=== PATIENT | female | born 1950 | race American Indian/Alaskan Native ===

== ENCOUNTER 2017-06-15 20:30 | Emergency (ER) | payer MEDICARE, OTHER ==
--- NOTE | 2017-06-15 21:02 | EDM.PDOC ---
ED HPI GENERAL MEDICAL PROBLEM - General Chief Complaint: Lower Extremity Injury/Pain Stated Complaint: CAME BY AMB,NEW PATIENT,NEURO SYMPTOMS Time Seen by Provider: 06/15/17 20:45 Source of Information: Reports: Patient History Limitations: Reports: No Limitations - History of Present Illness INITIAL COMMENTS - FREE TEXT/NARRATIVE: ED via [facility] with c/o low back pain with increased pain on left buttock and difficulty walking related to pain. [place] with onset of increasing pain. Patient states she has chronic back pain but tonight pain did not relieve with Tramadol so contacted EMS. Patient states has been travelling recently and spending more time sitting than usual and not moving around. Left Lower Back Pain Score (Numeric/FACES): 8 - Related Data Allergies Allergy/AdvReac Type Severity Reaction Status Date / Time hydrocodone Allergy Hives Verified 06/15/17 21:45 oxycodone Allergy Hives Verified 06/15/17 21:45 strawberry Allergy Hives Verified 06/15/17 21:45 Home Meds: Home Meds Atenolol 25 mg PO DAILY 06/15/17 [History] Calcium Carbonate [Calcium] 500 mg PO DAILY 06/15/17 [History] Fish Oil/[place]-3 Fatty Acids [Fish Oil] 500 mg PO DAILY 06/15/17 [History] Hydrochlorothiazide 25 mg PO DAILY 06/15/17 [History] Omeprazole 10 mg PO DAILY 06/15/17 [History] Simvastatin [Zocor] 10 mg PO DAILY 06/15/17 [History] Past Medical History Cardiovascular History: Reports: High Cholesterol, Hypertension Gastrointestinal History: Reports: GERD, Hemorrhoids - Past Surgical History GI Surgical History: Reports: Colonoscopy Social & Family History - Tobacco Use Smoking Status *Q: Current Every Day Smoker Years of Tobacco use: 40 Packs/Tins Daily: 3 - Caffeine Use Caffeine Use: Reports: Coffee - Recreational Drug Use Recreational Drug Use: No Review of Systems - Review of Systems Review Of Systems: ROS reveals no pertinent complaints other than HPI. ED EXAM, GENERAL - Physical Exam Exam: See Below Exam Limited By: No Limitations General Appearance: Alert, No Apparent Distress, Moderate Distress Eye Exam: Bilateral Eye: Conjunctival Injection Nose: Normal Inspection Throat/Mouth: Normal Inspection Head: Atraumatic, Normocephalic Neck: Normal Inspection Respiratory/Chest: No Respiratory Distress Course - Vital Signs Last Recorded V/S: Last Vital Signs Temp 96.5 F 06/15/17 20:44 Pulse 68 06/15/17 20:44 Resp 18 06/15/17 20:44 BP 145/57 H 06/15/17 20:44 Pulse Ox 96 06/15/17 20:44 - Orders/Labs/Meds Meds: Medications Discontinued Medications Generic Name Dose Route Start Last Admin Trade Name Rolandq PRN Reason Stop Dose Admin Cyclobenzaprine HCl 5 mg 06/15/17 22:43 06/15/17 22:48 Flexeril PO 06/15/17 22:44 5 mg ONETIME ONE Administration Ketorolac Tromethamine 30 mg 06/15/17 22:42 06/15/17 22:47 Toradol IM 06/15/17 22:43 30 mg ONETIME ONE Administration - Radiology Interpretation Free Text/Narrative:: CT unremarkable for acute process, arthritic changes present Departure - Departure Time of Disposition: 23:11 Disposition: Home, Self-Care 01 Condition: Good Clinical Impression: Sciatic leg pain - Discharge Information Instructions: Sciatica Forms: ED Department Discharge Additional Instructions: follow bup with primary care ice to low back tramadol as ordered by primary provider rest , change positions more frequently
[2017-06-15] MEDS: Ketorolac 30 MG/ML SDV IM ONE (22:47)
[2017-06-15] MEDS: Cyclobenzaprine 10 MG Tab PO ONE (22:48)
== END 2017-06-15 23:15 | disposition home or self-care (01) ==
LOC: DL.ED 20:30
DX: M54.42 Lumbago with sciatica, left side (principal); F17.210 Nicotine dependence, cigarettes, uncomplicated; I10 Essential (primary) hypertension; E78.00 Pure hypercholesterolemia, unspecified; Z79.899 Other long term (current) drug therapy; Z88.5 Allergy status to narcotic agent; Z91.018 Allergy to other foods
CPT/HCPCS: 72131; 96372; 99284; A9270; J1885

== ENCOUNTER 2019-04-28 11:44 | Emergency (ER) | payer MEDICARE, OTHER ==
[2019-04-28] MEDS ORDERED: Ketorolac 30 MG/ML SDV IM ONE (13:12)
[2019-04-28] MEDS ORDERED: Cyclobenzaprine 10 MG Tab PO ONE (13:13)
--- NOTE | 2019-04-28 18:52 | EDM.PDOC ---
Scribed by Daysi Zamora 04/28/19 1916 for Dat Patrick NP ED HPI GENERAL MEDICAL PROBLEM - General Chief Complaint: Back Pain or Injury Stated Complaint: BACK PAIN Time Seen by Provider: 04/28/19 13:00 Source of Information: Reports: Patient, RN, RN Notes Reviewed History Limitations: Reports: No Limitations - History of Present Illness INITIAL COMMENTS - FREE TEXT/NARRATIVE: Patient is a 68-year-old female who presents to ED with complaint of lower back pain x1 day. She reports a history fo sciatica in her lower back. She states that she usually sees a chiropractor. She has been travelling a little bit lately and today when she got up she started having pain. She tried Tylenol with no relief. She denies any known triggers, fall, or injury. Pain is an 8/10 and it is sharp in her lower back extending into her left leg. Onset: Gradual Duration: Getting Worse Location: Reports: Back Quality: Reports: Sharp Severity: Moderate Improves with: Reports: None Worsens with: Reports: None Associated Symptoms: Reports: No Other Symptoms Back Pain Score (Numeric/FACES): 9 - Related Data Allergies Allergy/AdvReac Type Severity Reaction Status Date / Time hydrocodone Allergy Hives Verified 04/28/19 12:25 oxycodone Allergy Hives Verified 04/28/19 12:25 strawberry Allergy Hives Verified 04/28/19 12:25 Home Meds: Home Meds Calcium Carbonate [Calcium] 500 mg PO DAILY 06/15/17 [History] Omeprazole 10 mg PO DAILY 06/15/17 [History] Simvastatin [Zocor] 10 mg PO DAILY 06/15/17 [History] atenoloL [Atenolol] 25 mg PO DAILY 06/15/17 [History] hydroCHLOROthiazide [Hydrochlorothiazide] 25 mg PO DAILY 06/15/17 [History] Aspirin 81 mg PO DAILY 04/28/19 [History] Past Medical History HEENT History: Reports: Impaired Vision Cardiovascular History: Reports: High Cholesterol, Hypertension Respiratory History: Reports: None Gastrointestinal History: Reports: GERD, Hemorrhoids Genitourinary History: Reports: None [employer]IVER History: Reports: , Other (See Below) Other [employer] TR[employer]IVER History: hysterectomy Musculoskeletal History: Reports: Back Pain, Chronic Neurological History: Reports: None Psychiatric History: Reports: None Hematologic History: Reports: None Immunologic History: Reports: None Oncologic (Cancer) History: Reports: None Dermatologic History: Reports: None - Infectious Disease History Infectious Disease History: Reports: None - Past Surgical History Head Surgeries/Procedures: Reports: None GI Surgical History: Reports: Colonoscopy Endocrine Surgical History: Reports: Thyroidectomy Social & Family History - Family History Family Medical History: Noncontributory - Tobacco Use Smoking Status *Q: Current Every Day Smoker Years of Tobacco use: 30 Packs/Tins Daily: 0.4 - Caffeine Use Caffeine Use: Reports: Coffee - Recreational Drug Use Recreational Drug Use: No ED ROS GENERAL - Review of Systems Review Of Systems: Comprehensive ROS is negative, except as noted in HPI. ED EXAM,LOWER BACK PAIN/INJURY - Physical Exam Exam: See Below Exam Limited By: No Limitations General Appearance: Alert, WD/WN, No Apparent Distress Respiratory/Chest: No Respiratory Distress, Lungs Clear, Normal Breath Sounds, No Accessory Muscle Use, Chest Non-Tender Cardiovascular: Normal Peripheral Pulses, Regular Rate, Rhythm, No Edema, No Gallop, No JVD, No Murmur, No Rub Back Exam: Other (Patient has low back pain on palpation. ) Course - Vital Signs Last Recorded V/S: Last Vital Signs Temp 98.0 F 04/28/19 12:15 Pulse 64 04/28/19 12:15 Resp 18 04/28/19 12:15 BP 168/80 H 04/28/19 12:15 Pulse Ox 94 L 04/28/19 12:15 - Orders/Labs/Meds Meds: Medications Discontinued Medications Generic Name Dose Route Start Last Admin Trade Name Inge PRN Reason Stop Dose Admin Cyclobenzaprine HCl 10 mg 04/28/19 13:13 04/28/19 13:21 Flexeril PO 04/28/19 13:14 10 mg ONETIME ONE Administration Ketorolac Tromethamine 30 mg 04/28/19 13:12 04/28/19 13:21 Toradol IM 04/28/19 13:13 30 mg ONETIME ONE Administration - Re-Assessments/Exams Free Text/Narrative Re-Assessment/Exam: 04/28/19 16:32 Patient had back pain a 6/10 on rest and 8/10 while moving. Patient was given Toradol and Flexeril while in ED with relief. 04/28/19 18:50 Departure - Departure Time of Disposition: 13:18 Disposition: Home, Self-Care 01 Condition: Good Clinical Impression: Low back pain Qualifiers: Chronicity: acute Back pain laterality: midline Sciatica presence: with sciatica Sciatica laterality: sciatica laterality unspecified Qualified Code(s) : M54.40 - Lumbago with sciatica, unspecified side - Discharge Information *PRESCRIPTION DRUG MONITORING PROGRAM REVIEWED*: Not Applicable *COPY OF PRESCRIPTION DRUG MONITORING REPORT IN PATIENT REX: Not Applicable Instructions: Acute Back Pain, Adult Referrals: PCP,None [Primary Care Provider] - Forms: ED Department Discharge Additional Instructions: RX: Flexeril 5 to 10mg daily p.r.n. Recommend back range of motion. Follow up with provider in 2 days as scheduled. Sepsis Event Note - Evaluation Sepsis Screening Result: No Definite Risk - Focused Exam Vital Signs: Vital Signs Temp Pulse Resp BP Pulse Ox 04/28/19 12:15 98.0 F 64 18 168/80 H 94 L Date Exam was Performed: 04/28/19 Time Exam was Performed: 18:51 I have read and agree with the documentation that has been completed regarding this visit. By signing this record, I attest that the documentation was completed in my physical presence and is an accurate record of the encounter.
== END 2019-04-28 13:27 | disposition home or self-care (01) ==
LOC: DL.ED 11:44
DX: M54.42 Lumbago with sciatica, left side (principal); I10 Essential (primary) hypertension; E78.00 Pure hypercholesterolemia, unspecified; K21.9 Gastro-esophageal reflux disease without esophagitis; F17.210 Nicotine dependence, cigarettes, uncomplicated; Z88.5 Allergy status to narcotic agent; Z91.018 Allergy to other foods; Z79.899 Other long term (current) drug therapy; Z79.82 Long term (current) use of aspirin
CPT/HCPCS: 96372; 99283; A9270; J1885